=== PATIENT | male | born 1930 | race Caucasian/White ===

== ENCOUNTER 2016-10-02 18:27 | Inpatient (IN) | payer OTHER ==
[~2016-10-02] VITALS: Ht 180.3 cm; Wt 81.0 kg
--- NOTE | ~2016-10-02 | H ---
[facility] [place] [address] HISTORY AND PHYSICAL Name: WILLARD HARVEY Room #: 455-P ADM IN M.R.#: [id number] Admission: 10/02/16 Attend Phys: Aristides Melgar MD Discharge: Date of : 32 Report #: [id number] THIS REPORT FOR: //name// CC: FAM unknown Aristides Melgar DATE OF ADMISSION: 10/02/2016 ATTENDING PHYSICIAN: Piero Boyce M.D. PRIMARY CARE PHYSICIAN: Tanner Chand at the [place] CHIEF COMPLAINT: Shortness of breath. HISTORY OF PRESENT ILLNESS: The patient is an 86-year-old male with a history of COPD. He normally is well controlled with using his ____ at home and nebulizer treatments as needed. He did not require oxygen. He does continue to smoke up to a pack of cigarettes per day. Over the last 3-4 days, he has had increasing shortness of breath which is very significantly worse with exertion. He feels somewhat congestive but his cough has been mostly dry. Sometimes he will produce some whitish sputum. He says he has been too short of breath to get up and walk to his kitchen, so he has not been eating much in the last few days. He has been using his nebulizer 3 to 4 times a day, which is more than he usually has to. Denies any fevers or chills. His daughters convinced him to be evaluated in the ER. He was evaluated in the ER. He has been admitted for COPD exacerbation. He is currently resting more comfortably and in no acute distress. PAST MEDICAL HISTORY: COPD, depression, asbestos exposure, gastritis, prior DVT and PE. PAST SURGICAL HISTORY: Bilateral cataract repair, back surgery, skin cancer removal, biliary drain placed and subsequent laparoscopic cholecystectomy, umbilical hernia repair. ALLERGIES: No known drug allergies. HOME MEDICATIONS: Stiolto 2 puffs daily, albuterol inhaler p.r.n., hydrocodone 1 to 2 tabs q. 4 hours p.r.n., Celexa 40 mg daily lorazepam 0.5 mg q. 6 hours p.r.n., Mucinex 400 mg b.i.d., Colace 100 mg daily. SOCIAL HISTORY: The patient is an current smoker, smoking up to 1 pack of cigarettes per day, has been smoking for at least 70 years. He lives alone. Denies any alcohol or drug use. He does continue to drive. FAMILY HISTORY: His father had a stroke. [address] [address] HISTORY AND PHYSICAL Name: WILLARD HARVEY Room #: [facility] IN ..#: [id number] Admission: 10/02/16 Attend Phys: Aristides Melgar MD Discharge: Date of : 32 Report #: [id number] REVIEW OF SYSTEMS: Twelve point review of systems was reviewed with the patient, otherwise negative unless stated in the HPI. PHYSICAL EXAMINATION: GENERAL: The patient is an alert male in no acute distress. VITAL SIGNS: Temperature is 36.7, heart rate 98, respirations 24, blood pressure 162/85, oxygen 94% on room air. HEENT: PERRLA. Sclerae is nonicteric. Oral mucosa is pink and moist. NECK: Supple, no JVD noted. CARDIOVASCULAR: Normal S1, S2. No murmurs, rubs or gallops. RESPIRATORY: Breath sounds are diminished overall with expiratory wheezing bilaterally with extended respiratory phase. Breathing is nonlabored at rest. He is able to speak in full sentences. ABDOMEN: Soft, nontender, nondistended with positive bowel sounds. VASCULAR: No edema noted. Pedal pulses are 2+. NEUROLOGIC: The patient is alert and oriented x 3, speech is clear. He is answering questions appropriately and following commands. No focal neuro deficits noted. LABORATORY DATA AND DIAGNOSTICS: WBC is 10.3, hemoglobin 16.4, platelets 201. Sodium 137, potassium 4.1, BUN 16, creatinine 1.2, glucose 98. BNP is 327 and EKG showing sinus rhythm, PACs and chest x-ray showed no acute process identified. ASSESSMENT AND PLAN: 1. Idhcp-zt-hyliwrs respiratory failure due to chronic obstructive pulmonary disease exacerbation. The patient is improving. Chest x-ray did not show any acute findings. We will go ahead and cover with Zithromax for bronchitis. He is afebrile. We will continue schedule breathing treatments and IV steroids and mucolytics. He is not on any current oxygen. 2. History of deep venous thrombosis and pulmonary embolism. This was remote after ankle fracture in which he was in a cast. We will check D-dimer level and if elevated, will order CT of the abdomen. 3. Ongoing tobacco abuse. The patient has been advised to quit. 4. Deep venous thrombosis prophylaxis. Start Lovenox. We will continue to follow the patient closely throughout the hospitalization and make changes based on clinical status. By: [id number] Nicole Carl, XANDER /nt
--- NOTE | ~2016-10-02 | EKG ---
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 : 1930 Requested By: Nuvia Rain Order Number: [id number] MD: Oswaldo Goodman Measurements Intervals Clever Rate: 85 P: 93 CA: 219 QRS: 65 QRSD: 87 T: 72 QT: 389 QTc: 463 Interpretive Statements Sinus rhythm Atrial and ventricular premature complexes Borderline prolonged CA interval Baseline wander in lead(s) I,III,aVL No previous ECG available for comparison Electronically Signed On 10-03-2016 8:46:45 CDT by Oswaldo Goodman [email or web address] <ELECTRONICALLY SIGNED> By: Oswaldo Goodman MD, [facility] 10/03/16 [phone] Oswaldo Goodman MD, [facility] /EPI
--- NOTE | ~2016-10-02 | HC ---
[facility] [place] [address] CONSULTATION Name: WILLARD HARVEY Room #: [facility] ADM IN M.R.#: [id number] Admission: 10/02/16 Attend Phys: Aristides Melgar MD Discharge: Date of : 32 Report #: [id number] THIS REPORT FOR: //name// CC: FAM unknown Aristides Melgar DATE OF SERVICE: 10/03/2016 REFERRING PROVIDER: Aristides Melgar M.D. REASON FOR CONSULTATION: COPD exacerbation. CHIEF COMPLAINT: Shortness of breath. HISTORY OF PRESENT ILLNESS: Our group was asked to see the patient in consultation while hospitalized at [facility], known to me from prior visits, pleasant 86-year-old male with a history of severe COPD, last evaluation it was suggested he continue with nebulized bronchodilators and started on Stiolto inhaler 2 inhalations daily. Notes there is marked improvement in symptoms with this therapy and had stopped doing nebulized treatments altogether except p.r.n. Unfortunately, the patient continues to smoke several cigarettes per day. The patient noted some increased symptoms about one week ago with increased shortness of breath, cough, difficulty clearing sputum, presented to the Emergency Department yesterday evening, had significant anxiety and shortness of breath associated with this and subsequently was admitted. He underwent a CT scan of the chest PE protocol earlier today, which showed no evidence of PE, though he did have a prior history of pulmonary embolism in the past, chronic changes of emphysema and some mild interstitial disease, likely associated with prior asbestos exposure noted, and the patient has some improved symptoms with treatment overnight. ALLERGIES: None known. PAST MEDICAL HISTORY: 1. COPD. 2. Prior asbestos exposure. 3. Prior venous thromboembolism. 4. Depression. OUTPATIENT MEDICATIONS: Include Stiolto 2 inhalations daily, albuterol inhaler p.r.n., albuterol nebulizer p.r.n., hydrocodone p.r.n., Celexa 40 mg daily, lorazepam 0.5 q.6 hours p.r.n., Mucinex and Colace. SOCIAL HISTORY: The patient is an active smoker, up to 1 pack per day. Currently lives independently alone, daughter is involved in his care. No alcohol consumption. Currently, he is retired. [address] [address] CONSULTATION Name: WILLARD HARVEY AMELIA Room #: [address] [place] [address] [place] ..#: [id number] Admission: 10/02/16 Attend Phys: Aristides Melgar MD Discharge: Date of : 32 Report #: [id number] FAMILY HISTORY: Significant for cerebrovascular disease. REVIEW OF SYSTEMS: CONSTITUTIONAL: Denies any fevers, chills, sweats, change in weight or appetite. EARS, NOSE AND THROAT: No upper respiratory congestion, rhinorrhea or dysphagia. CARDIOVASCULAR: No chest pains or palpitations. GASTROINTESTINAL: No nausea, vomiting, diarrhea, constipation or abdominal pain. GENITOURINARY: No dysuria, no frequency. INTEGUMENT: Denies any rash. MUSCULOSKELETAL: No joint pains or swelling. Some general debilitation and weakness. Rest of 12-point review of systems except as described in HPI normal. PHYSICAL EXAMINATION: VITAL SIGNS: Afebrile, pulse 80s, respiratory rate 20, blood pressure 116/72 and oxygen saturation 97% on 3 liters. GENERAL: This is a pleasant elderly male, in no distress at this time. HEENT: Clear oropharynx. Mallampati I airway. NECK: Supple, no lymphadenopathy. LUNGS: Diminished, prolonged expiratory phase, some expiratory wheezes and rhonchi noted. CARDIOVASCULAR: Heart regular. No murmurs or gallops. ABDOMEN: Soft and nontender, no masses and no hepatosplenomegaly. EXTREMITIES: Without significant edema. LABORATORY DATA: White blood cell count 10,000, hemoglobin 16, hematocrit 49 and platelet count 201. Sodium 137, potassium 4.1, chloride 100, bicarbonate 27, BUN 16, creatinine 1.2 and glucose 98. ProBNP 327. CT scan of the chest as described in HPI. IMPRESSION: 1. Acute exacerbation of chronic obstructive pulmonary disease, possibly due to lower respiratory infection. 2. Ongoing tobacco abuse. 3. Myqra-pm-aboilkk hypoxemic respiratory failure. 4. Prior history of venous thromboembolism with recent CT scan of the chest done today reveals no significant recurrence. SUGGESTIONS: 1. Discussed at length with daughter and the patient need to avoid ongoing tobacco use, no change in inhaled therapies at home. Daughter notes the patient with difficulty using an HFA inhaler, might consider changing Proventil p.r.n. to either Proventil with spacer or Combivent Respimat as he tolerates Respimat [address] [address] CONSULTATION Name: WILLARD HARVEY Room #: [facility] ADM IN M.R.#: [id number] Admission: 10/02/16 Attend Phys: Aristides Melgar MD Discharge: Date of : 32 Report #: [id number] inhaled therapy well. 2. Continue with systemic steroid taper. 3. DuoNeb for now. Resume Stiolto and p.r.n. inhaler as noted in #1 at discharge. 4. Continue with azithromycin. 5. Physical and occupational therapy. 6. DVT prophylaxis. 7. Additional recommendations to follow. Thank you for requesting our suggestions. We will follow along with you. By: 2037 1237 Danial Rodriguez MD /prasad
--- NOTE | ~2016-10-02 | EKG ---
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 10/03/16 0848 6 6 Oswaldo Goodman MD, [facility] /EPI
[~2016-10-02 18:27] MED LIST: ACETAMINOPHEN325 M1 PO; ALEVE220 MG PO; ASMANEX0.135 G1; ATIVAN0.5 MG PO; CELEXA40 MG PO; DUONEB 2.5-0.5 M3 ML INH; FORADIL12 MCG; HYDROCODONE-AP1 EAC6 PO; LEVAQUIN 500 M500 M2 PO; LEXAPRO20 MG PO; LORAZEPAM 0.50.5 MG PO; MUCINEX TA600 MG/TA2 PO; NICOTINE TRANSD21 M1; NORMAL SALINE FL5 ML FLUSH; OMEPRAZOLE20 M2 PO; OMEPRAZOLE20 MG PO; PREDNISONE 20 M20 M1 PO; PROTONIX40 M1 PO; PROVENTIL; PROVENTIL HFA6.7 G1 INH; STIOLTO RESPIMAT4 GM INH; STOOL SOFTENER100 MG PO; ZPAK PO; ZYRTEC10 MG PO
[2016-10-02 18:32] VITALS: BP 114/72
[2016-10-02 20:39] LABS: ABSOLUTE NEUTROPHILS 7.2 thou/uL (1.4-8.2); BASOPHILS 1.1 % (0.0-2.0); EOSINOPHILS 6.9 % (0.0-3.0); HEMATOCRIT 48.8 % (42.0-52.0); HEMOGLOBIN 16.4 gm/dL (14.0-18.0); LYMPHOCYTES 15.9 % (24.0-44.0); MCH 31.8 pg (26.0-34.0); MCHC 33.6 g/dL (28.0-37.0); MCV 94.7 fL (80.0-100.0); MONOCYTES 6.2 % (1.0-8.0); PLATELET COUNT 201 thou/uL (150-400); POLYS 69.9 % (36.0-66.0); RBC 5.15 mil/uL (4.50-6.00); RDW 15.7 % (10.5-14.5); WBC 10.3 thou/uL (4.0-11.0)
[2016-10-02 20:40] LABS: MANUAL DIFF NO
[2016-10-02 20:42] LABS: ANION GAP 10 mmol/L (7-16); BUN 16 mg/dL (7-18); CALCIUM 9.2 mg/dL (8.5-10.1); CHLORIDE 100 mmol/L (98-107); CO2 27 mmol/L (21-32); CREATININE 1.2 mg/dL (0.7-1.3); GLUCOSE 98 mg/dL (74-106); POTASSIUM 4.1 mmol/L (3.5-5.1); SODIUM 137 mmol/L (136-145)
[2016-10-02 20:55] LABS: NT-PRO BRAIN NAT PEPTIDE 327 pg/mL (<300); TROPONIN-I < 0.04 ng/mL (<0.04-0.07)
[2016-10-02 23:49] VITALS: BP 159/63
[2016-10-02 23:55] VITALS: BP 162/85
[2016-10-03 04:00] VITALS: BP 147/69
[2016-10-03 07:34] VITALS: BP 107/66
[2016-10-03 11:33] VITALS: BP 131/64
[2016-10-03 15:00] VITALS: BP 116/72
[2016-10-03 19:18] VITALS: BP 137/74
[2016-10-04 03:15] VITALS: BP 135/62
[2016-10-04 04:26] LABS: HEMATOCRIT 40.7 % (42.0-52.0); MCH 31.6 pg (26.0-34.0); MCV 92.9 fL (80.0-100.0); PLATELET COUNT 185 thou/uL (150-400); RBC 4.39 mil/uL (4.50-6.00); RDW 15.4 % (10.5-14.5); WBC 14.8 thou/uL (4.0-11.0)
[2016-10-04 04:37] LABS: CALCIUM 8.5 mg/dL (8.5-10.1); CREATININE 1.2 mg/dL (0.7-1.3); POTASSIUM 4.1 mmol/L (3.5-5.1)
[2016-10-04 04:58] LABS: HEMOGLOBIN 13.9 gm/dL (14.0-18.0); MANUAL DIFF YES
[2016-10-04 06:35] LABS: ABSOLUTE NEUTROPHILS 13.8 thou/uL (1.4-8.2); ANISOCYTOSIS 1+; TOTAL CELL COUNT 100
[2016-10-04 07:10] VITALS: BP 121/61
[2016-10-04] MEDS ORDERED: PREDNISONE 10 M10 MG PO (09:12)
[2016-10-04] MEDS ORDERED: TESSALON PERLE100 MG PO (09:12)
[2016-10-04] MEDS ORDERED: AZITHROMYCIN 2250 MG PO (09:12)
[2016-10-04 11:10] VITALS: BP 129/57
[2016-10-04 14:31] VITALS: BP 129/57
== END 2016-10-04 16:43 | disposition home or self-care (01) | DRG 189 ==
LOC: ER 18:27 → 4W 22:27 → EROBS 22:27 → 4W 23:29
PROVIDERS: Emergency Medicine; Internal Medicine
DX: J96.21 Acute and chronic respiratory failure with hypoxia (principal); J44.1 Chronic obstructive pulmonary disease with (acute) exacerbation; F32.9 Major depressive disorder, single episode, unspecified; F17.210 Nicotine dependence, cigarettes, uncomplicated; Z86.718 Personal history of other venous thrombosis and embolism; Z86.711 Personal history of pulmonary embolism; Z86.14 Personal history of Methicillin resistant Staphylococcus aureus infection; Z85.828 Personal history of other malignant neoplasm of skin; Z90.49 Acquired absence of other specified parts of digestive tract; Z98.42 Cataract extraction status, left eye; Z98.41 Cataract extraction status, right eye; Z82.3 Family history of stroke
CPT/HCPCS: 10045

== ENCOUNTER → 2017-05-13 | Outpatient (CLI) | payer OTHER ==
[~2017-05-13] MED LIST changes: +AZITHROMYCIN 2250 MG PO; +PREDNISONE 10 M10 MG PO; +TESSALON PERLE100 MG PO
--- NOTE | ~2017-05-13 | P ---
[facility] [place] [address] PROCEDURE REPORT Name: WILLARD HARVEY Room #: [facility]#: [id number] Admission: 05/13/17 Attend Phys: Lance Canas Discharge: Date of : 32 Report #: [id number] THIS REPORT FOR: //name// CC: Lance Eason FAM unknown Kathi Leiva MD DATE OF SERVICE: 05/13/2017 PROCEDURE PERFORMED: Upper endoscopy with biopsies. HISTORY OF PRESENT ILLNESS: The patient is an 87-year-old male, complains of dysphagia. He had a previous upper endoscopy by myself in 10/2008. At that time was noted to have a Schatzki ring and small hiatal hernia as well as gastritis. He was also H. pylori positive and was treated. DESCRIPTION OF PROCEDURE: The risks and benefits of the procedure were explained to the patient. Those risks including but not limited to bleeding, perforation, the risk of sedation. He understood these risks and gave informed consent. Sedation was given using propofol per Anesthesia. Next, using a standard [employer] upper endoscope, the scope was placed in the patient's mouth and advanced under direct vision through the esophagus, stomach and into the second portion of the duodenum. The larynx was normal in appearance. The proximal esophagus was normal. 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 This proximal edge was 33 cm and extended down to the GE junction, which was 42 cm. Multiple biopsies were obtained. The mass takes up approximately half of the lumen of the circumference of the esophagus. Upon entering the stomach, a small hiatal hernia was again noted. On retroflexion, there is no obvious mass extension into the gastric cardia. There was a mild gastritis. Biopsies obtained. Also, a submucosal mass was noted in the mid body of the stomach. The pylorus was normal and patent. The duodenal bulb, first and second portion were all normal. At this point, the scope was then withdrawn and the procedure terminated. The patient tolerated the procedure well. IMPRESSION: 1. 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 2. Hiatal hernia. 3. Submucosal mass, mid body of the stomach. 4. Mild gastritis. RECOMMENDATIONS: 1. Await biopsy results. 2. We will likely proceed with a CT scan of the chest and abdomen in the near future. [address] [address] PROCEDURE REPORT Name: WILLARD HARVEY AMELIA Room #: REG [facility]#: [id number] Admission: 05/13/17 Attend Phys: Lance Canas Discharge: Date of : 32 Report #: [id number] Thank you for allowing me to participate in his care. By: 1123 1455 Lance Eason MD /nt
== END | disposition home or self-care (01) ==
LOC: GI 08:34
DX: K29.70 Gastritis, unspecified, without bleeding (principal); K22.8 Other specified diseases of esophagus; K44.9 Diaphragmatic hernia without obstruction or gangrene; J44.9 Chronic obstructive pulmonary disease, unspecified; N40.0 Benign prostatic hyperplasia without lower urinary tract symptoms; Z86.711 Personal history of pulmonary embolism; Z86.718 Personal history of other venous thrombosis and embolism; Z87.19 Personal history of other diseases of the digestive system; Z79.899 Other long term (current) drug therapy; Z79.891 Long term (current) use of opiate analgesic

== ENCOUNTER → 2017-05-21 | Outpatient (CLI) | payer OTHER ==
[2017-05-21 10:54] LABS: CREATININE 1.1 mg/dL (0.7-1.3)
== END ==
LOC: LABMALL 10:05 → CAT 10:05
PROVIDERS: Specialist
DX: K22.8 Other specified diseases of esophagus (principal); R59.0 Localized enlarged lymph nodes; I70.0 Atherosclerosis of aorta; J98.4 Other disorders of lung; M25.78 Osteophyte, vertebrae; Z90.49 Acquired absence of other specified parts of digestive tract